=== PATIENT | female | born 1970 ===

== ENCOUNTER 2020-08-26 07:08 | Day surgery (SDC) | payer OTHER ==
[~2020-08-26 07:08] MED LIST: CEVIMELINE HCL30 MG PO; [UNRECOGNIZED DRUG - OTHER]; [UNRECOGNIZED DRUG - OTHER] PO
[2020-08-26] MEDS ORDERED: PERCOCET 5-3251 EACH PO (15:08)
[2020-08-26] MEDS ORDERED: NEURONTIN300 MG PO (15:08)
[2020-08-26] MEDS ORDERED: DERMOPLAST PAIN78 GM TOP (15:09)
== END 2020-08-26 19:50 | disposition home or self-care (01) ==
LOC: CIR.AMB 07:08
PROVIDERS: ATTEND Surgery
DX: K60.1 Chronic anal fissure (principal); Z20.822 Contact with and (suspected) exposure to COVID-19